=== PATIENT | female | born 1980 | race Caucasian/White ===

== ENCOUNTER 2016-12-20 14:54 | Emergency (ER) | payer SELFPAY ==
[2016-12-20 14:58] VITALS: BMI 37.3
[2016-12-20 15:03] VITALS: BP 105/71; PULSE 63; RESP 20; TEMP 97.3; O2SAT 99
[2016-12-20] MEDS ORDERED: Lidocaine 2% Inj (20ml) INFIL ONE (15:33)
[2016-12-20] MEDS ORDERED: Bacitracin 500 Units/gm Oint Foilpak UD TOP ONE (15:33)
[2016-12-20] MEDS ORDERED: Bacitracin 500 Units/gm Oint Foilpak UD ONE (15:36)
[2016-12-20] MEDS ORDERED: Lidocaine 2% Inj (20ml) ONE (15:37)
--- NOTE | 2016-12-20 16:23 | C.PDOC ---
History Of Present Illness 36 y/o female presents to the ED with complains of laceration. 1 hour PROCESSING MGR, pt was using a knife to cut an avocado and cut left index finger. Pt denies other injury, numbness, weakness or any other complaints. Time Seen by Provider: 12/20/16 15:11 Chief Complaint (Nursing): Abnormal Skin Integrity History Per: Patient History/Exam Limitations: no limitations Onset/Duration Of Symptoms: Mins Current Symptoms Are (Timing): Still Present Location Of Injury: Left: Hand Severity: Mild Recent travel outside of the [place]: No Past Medical History Reviewed: Historical Data, Nursing Documentation, Vital Signs Vital Signs: Last Vital Signs Temp 97.3 F L 12/20/16 14:59 Pulse 63 12/20/16 14:59 Resp 20 12/20/16 16:36 BP 105/71 12/20/16 14:59 Pulse Ox 99 12/20/16 18:33 Family History: States: Unknown Family Hx - Social History Hx Alcohol Use: No Hx Substance Use: No - Immunization History Hx Tetanus Toxoid Vaccination: No Hx Influenza Vaccination: No Hx Pneumococcal Vaccination: No Review Of Systems Except As Marked, All Systems Reviewed And Found Negative. Skin: Positive for: Other (laceration to left index finger) Neurological: Negative for: Weakness, Numbness Physical Exam - Physical Exam Appears: Non-toxic, No Acute Distress Skin: Warm, Dry, No Rash Head: Atraumatic, Normacephalic Eye(s): bilateral: Normal Inspection Oral Mucosa: Moist Neck: Normal ROM Chest: Symmetrical, No Tenderness Cardiovascular: Rhythm Regular Respiratory: Normal Breath Sounds Extremity: Normal ROM, Capillary Refill (<2 seconds), No Deformity, Other (2.5 cm linear laceration to medial aspect left 2nd digit) Pulses: Left Radial: Normal, Right Radial: Normal Neurological/Psych: Oriented x3, Normal Motor, Normal Sensation Gait: Steady ED Course And Treatment O2 Sat by Pulse Oximetry: 99 (on room air) Pulse Ox Interpretation: Normal Procedure: Wound Repair - Time Out Time Out: Side verified, Site verified - Procedure Procedure: Wound Repair: finger laceration - Consent Obtained Consent obtained: Written - Indications Indication(s):: Laceration - Location Finger:: Left, Index - Anesthetic Technique Local/Regional Anesthetic:: Lidocaine 1% - Debris Debris:: None - Complexity Complexity:: Simple (one layer) - Wound repair method Sutures:: # (5), Size (4-0), Type (nylon), Technique (interrupted) - Patient tolerated procedure Patient Tolerated Procedure:: Well Disposition - Disposition Referrals: [facility] [Outside] Disposition: HOME/ ROUTINE Disposition Time: 16:20 Condition: GOOD Additional Instructions: Keep the wound for 2 days. Wash with soap and water twice a day and apply bacitracin. Sutures to be removed with 7 days. 10 days at most. Tdap (Adacel) given for the laceration which will cover for tetanus Instructions: Finger Laceration (ED) - Clinical Impression Clinical Impression: Laceration of finger - PA / INSOLE REINFORCER / Resident Statement MD/DO has reviewed & agrees with the documentation as recorded. - Scribe Statement The provider has reviewed the documentation as recorded by the Scribnabeel Baptiste All medical record entries made by the Scribnabeel were at my direction and personally dictated by me. I have reviewed the chart and agree that the record accurately reflects my personal performance of the history, physical exam, medical decision making, and the department course for this patient. I have also personally directed, reviewed, and agree with the discharge instructions and disposition.
== END 2016-12-20 16:36 | disposition home or self-care (01) ==
LOC: C.ER 14:54
DX: S61.211A Laceration without foreign body of left index finger without damage to nail, initial encounter (principal); W26.0XXA Contact with knife, initial encounter; Y93.G1 Activity, food preparation and clean up; Y92.000 Kitchen of unspecified non-institutional (private) residence as the place of occurrence of the external cause

== ENCOUNTER 2017-01-28 00:37 | Emergency (ER) | payer SELFPAY ==
[2017-01-28 00:44] VITALS: BMI 37.9
[2017-01-28] MEDS ORDERED: Lactated Ringer's 1,000 ML IV ONE (01:08)
[2017-01-28 01:17] LABS: RBC URINE < 1 /hpf (0-3); URINE BILIRUBIN NEGATIVE (NEGATIVE); URINE BLOOD NEGATIVE (NEGATIVE); URINE COLOR Yellow (YELLOW); URINE GLUCOSE (UA) NORMAL (Normal); URINE KETONE TRACE mg/dL (NEGATIVE); URINE LEUKOCYTE ESTERASE NEG Leu/uL (Negative); URINE PROTEIN NEGATIVE (NEGATIVE); URINE UROBILINOGEN NORMAL mg/dL (0.2-1.0); WBC URINE 1 /hpf (0-5)
== END 2017-01-28 03:03 | disposition home or self-care (01) ==
LOC: C.EROB 00:37
DX: O60.03 Preterm labor without delivery, third trimester (principal); Z3A.34 34 weeks gestation of pregnancy
CPT/HCPCS: 81001; 99283; J7120

== ENCOUNTER 2017-03-15 02:04 | Inpatient (IN) | payer MEDICAID, SELFPAY ==
--- NOTE | 2017-03-15 02:14 | OBHP ---
Datetime: 01/28/2017 01:27 IP Adm Impression: , intrauterine ; No Active Labor IP Admit Plan: Admit to unit; Discharge home Admit Comment, IP Provider: chief complaint-vaginal pressure HPI 36 y/o at 34.3 wga with c/o vaginal pressure for last few days.had vomiting three ties to day after dinner and since then felt the pressure is more intense.also noticed increased mucosal disc harge course AMA; care at [facility] in [place] PMH denies PSH denies OBGYN HX ; NVDX5; Denies hx of delivery Social hx denies tobacco,alchol or illcit drug use Exam see exam section UA with trace ketones; neg for nitrites and le A/P 36 y/o at 34.3 wga with c/o vaginal pressure.episode of voimiting after dinner.no active labor -iv fluid bolus -monitor closely 300AM Patient re-examined.cervix unchanged feels better with fluids patient discharegd home Pelvic Type - PN: Adequate Extremities - PN: Normal Abdomen - PN: Normal Back - PN: Normal Lungs - PN: Normal Heart - PN: Normal Neurologic - PN: Normal General - PN: Normal Contraction Comments Provider: ctx every 3-4min Gestation - Est Wks by US: 34.3 IP Hx Assessment: The History has been Reviewed and is Current EGA AdmitDate IP: 34.3 Vital Signs Provider: Reviewed; Within Normal Limits IP Chief Complaint: Uterine contractions FHR Category Provider Fetus A: Category I Dilatation, Provider: 0 Effacement, Provider: thick Station, Provider: closed Genitourinary Exam: Normal DTRs - PN: Normal
[2017-03-15] MEDS ORDERED: Lactated Ringer's 1,000 ML IV SCH ×2 (04:00)
[2017-03-15 04:24] LABS: BASO % 0.2 % (0.0-2.0); EOS # 0.1 K/uL (0.0-0.7); EOS % 0.9 % (0.0-4.0); HEMATOCRIT 37.8 % (34.0-47.0); LYMPH % 28.1 % (20.0-40.0); MEAN CELL VOLUME 90.9 fL (81.0-99.0); MEAN CORPUSCULAR HEMOGLOBIN 31.3 pg (27.0-31.0); MEAN CORPUSCULAR HGB CONC 34.4 g/dL (33.0-37.0); MEAN PLATELET VOLUME 9.4 fL (7.2-11.7); MONO # 0.5 K/uL (0.0-0.8); MONO % 7.8 % (0.0-10.0); RED CELL DISTRIBUTION WIDTH 14.8 % (11.5-14.5)
[2017-03-15 04:27] LABS: URINE BILIRUBIN NEGATIVE (NEGATIVE); URINE BLOOD NEGATIVE (NEGATIVE); URINE COLOR Straw (YELLOW); URINE GLUCOSE (UA) NORMAL (Normal); URINE KETONE NEGATIVE (NEGATIVE); URINE LEUKOCYTE ESTERASE NEG Leu/uL (Negative); URINE PROTEIN NEGATIVE (NEGATIVE); URINE UROBILINOGEN NORMAL mg/dL (0.2-1.0); WBC URINE 1 /hpf (0-5)
[2017-03-15 04:35] LABS: CHLORIDE 104 mmol/L (98-107); POTASSIUM 3.7 mmol/L (3.6-5.2); SODIUM 137 mmol/L (132-148)
[2017-03-15 04:38] LABS: ALB/GLOB RATIO 0.9 (1.0-2.1); ALKALINE PHOSPHATASE 128 U/L (38-126); ALT/SGPT 32 U/L (9-52); AST/SGOT 18 U/L (14-36); BILIRUBIN,TOTAL 0.3 mg/dL (0.2-1.3); BLOOD UREA NITROGEN 4 mg/dL (7-17); CARBON DIOXIDE 20 mmol/L (22-30); GFR AFRICAN-AMERICAN > 60; GLUCOSE,RANDOM 84 mg/dL (65-105); TOTAL PROTEIN 6.6 g/dL (6.3-8.3)
[2017-03-15 04:39] LABS: CALCIUM 8.5 mg/dl (8.6-10.4)
--- NOTE | 2017-03-15 05:56 | US ---
EXAM: US After First Trimester, Transabdominal CLINICAL HISTORY: 36 years old, female; Signs and symptoms; Other: Pain/bleeding; ; Additional info: Post edc , for efw / bpp TECHNIQUE: Real-time transabdominal obstetrical ultrasound of the maternal pelvis and a second or third trimester with image documentation. COMPARISON: No relevant prior studies available. FINDINGS: Fetus: Single live intrauterine gestation. Heart rate: heart rate of 123 beats per minute. Presentation: Cephalic. Placenta: Anterior placenta. No placenta previa or abruption. Amniotic fluid: BABITA = 5.7 cm. Decreased. Anatomy: No gross anomaly is appreciated. BIOMETRICS Gestational age by US: Estimated gestational age of 38 weeks 3 days by measurements. EFW: Estimated weight of 3453 g. BPD: 9.0 cm, correlating with 36 weeks 2 days. HC: 33.9 cm, correlating with 38 weeks 6 days. AC: 33.6 cm, correlating with 37 weeks 4 days. FL: 8.0 cm, correlating with 40 weeks 5 days. MATERNAL: Uterus: Unremarkable. No myometrial mass. Cervix: Closed cervix. Cervical length = 1.4 cm. Free fluid: No free fluid. IMPRESSION: 1. Single live intrauterine gestation. 2. Oligohydramnios. 3. Shortened cervix. 4. Incidental/non-acute findings are described above. EXAM: US , Transvaginal CLINICAL HISTORY: 36 years old, female; Signs and symptoms; Other: Pain/bleeding; ; Additional info: Post edc , for efw / bpp TECHNIQUE: Real-time endovaginal obstetrical ultrasound of the maternal pelvis and second or third trimester with image documentation. Endovaginal imaging was used for better evaluation of the cervix. COMPARISON: No relevant prior studies available. FINDINGS: Fetus: Single live intrauterine gestation. Heart rate: heart rate of 123 beats per minute. Presentation: Cephalic. Placenta: Anterior placenta. No placenta previa or abruption. Amniotic fluid: BABITA = 5.7 cm. Decreased. Anatomy: No gross anomaly is appreciated. BIOMETRICS Gestational age by US: Estimated gestational age of 38 weeks 3 days by measurements. EFW: Estimated weight of 3453 g. BPD: 9.0 cm, correlating with 36 weeks 2 days. HC: 33.9 cm, correlating with 38 weeks 6 days. AC: 33.6 cm, correlating with 37 weeks 4 days. FL: 8.0 cm, correlating with 40 weeks 5 days. MATERNAL: Uterus: Unremarkable. No myometrial mass. Cervix: Closed cervix. Cervical length = 1.4 cm. Free fluid: No free fluid. IMPRESSION: 1. Single live intrauterine gestation. 2. Oligohydramnios. 3. Shortened cervix. 4. Incidental/non-acute findings are described above. EXAM: US Biophysical Profile Without Non-Stress Testing CLINICAL HISTORY: 36 years old, female; Signs and symptoms; Other: Pain/bleeding; ; Additional info: Post edc , for efw / bpp TECHNIQUE: Real-time ultrasound of the maternal pelvis for biophysical profile evaluation with image documentation. COMPARISON: No relevant prior studies available. FINDINGS: breathing movements: Present. Score 2/2. Gross body movements: Present. Score 2/2. tone: Present. Score 2/2. Qualitative amniotic fluid volume: Decreased. Score 0/2. IMPRESSION: Abnormal biophysical profile. 01/29.
--- NOTE | 2017-03-15 08:54 | OBADHP ---
Datetime: 03/15/2017 03:26 Admit Comment, IP Provider: 36 y/o [id number] @ 40.6 wks GA MIRYAM 03/09/17 by limited recrods repo rts feeling ctx pain every 20 minutes, reports increasing intensity and frequency , denies lof. Pt re ports feeling mucuous like blood tinged discharge, denies vb, +FM. Pt reports last pnc visit a few da ys ago and was suppose to be induced but did not want to go t the hospital her doctor recommened and states her doctor was going to call this hospital. Pt states she was supposed to go for an US past he r due date but her doctor never sent her and states last US was done around 34 weeks. Pt denies any problems or concerns with this and states she had normal sugar testing for diabetes and den ies any elevated blood pressure. Pt reports all 5 children were vaginal delivery hoewver 3rd child ballard s shoulder dystocia and is currently 10 years old and is currently undergoing physical therapy. Pt s dejah wants to do cesearen section if any risk of shoulder dystocia. 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 p t counsled cannot predict shoulder dysotcia however if efw is larger than expected risk may be mateo flores. updated s/p efw/ bpp : 3453 grams , treasure 5.7cm. Pt recounsled and advised US efw loses accuracy wit h GA however radiology report is significantly less than 9lb 5 ounce baby with shoulder dystocia. Pt states would like for trial of IOL and if fails to progress or any signs of non reassurance prefers t o have cesearen section due ot son with shoulder dysotocia injury which was traumatatic. -admit -npo, ivf -admission labs -cervidil plan of care discussed extensively with patietn and partner, all questins answered. Pelvic Type - PN: Adequate Extremities - PN: Normal Abdomen - PN: Normal Back - PN: Normal Breast - PN: Not Done Lungs - PN: Normal Heart - PN: Normal Thyroid - PN: Not Done Neurologic - PN: Normal HEENT - PN: Normal General - PN: Normal Weight - Estimated: 3453 Presentation-Admit: Vertex FHR - Baseline A Provider: 135 Membranes, Provider: Intact Contraction Comments Provider: irreglular Gestation - Est Wks by US: 40.6 IP Hx Assessment: The History has been Reviewed and is Current IP Chief Complaint: Uterine contractions NICHD Variability Prov Fetus A: Moderate 6-25bpm NICHD Accel Fetus A IP Provider: [id number] FHR Category Provider Fetus A: Category I NICHD Decel Fetus A IP Provider: None Dilatation, Provider: 0-2 Effacement, Provider: 30 Station, Provider: -3 Genitourinary Exam: Normal DTRs - PN: Normal EGA AdmitDate IP: 41.0 IP Adm Impression: Term, intrauterine Datetime: 01/28/2017 01:27 Vital Signs Provider: Reviewed; Within Normal Limits IP Admit Plan: Admit to unit; Discharge home
[2017-03-15] MEDS ORDERED: Nalbuphine 20 mg/ml Inj (1 ml) ONE (09:22)
[2017-03-15] MEDS ORDERED: Lidocaine 2% MPF (5 ml) Inj ONE (10:52)
[2017-03-15] MEDS ORDERED: Oxycodone/Acetaminophen 5/325 mg Tab PO PRN (11:14)
--- NOTE | 2017-03-15 11:25 | OBDS ---
DELIVERY PERSONNEL Delivery Doctor: Joshua Cameron MD Founder President And Ceo: Jazmine Yanes RN MATERNAL INFORMATION Delivery Anesthesia: None Estimated Blood Loss (ml): 150 Provider Comments: pt was fully dilated and pushing. atrumatic, spontaneous delivery of head in kishan position, no nuchal cord noted, atraumatic spontaneous delivery of anterior followed by posteiror courtney ulder followed by delivery of the body. Both oral and nasal passages of the baby were bulb suctioned. Umbilical cord was clamped and cut. Baby was handed to mother on abdomen with RN assistance. Cord b lood and cord gases collected and sent x 2. Lower uterine segment boggy, small blood clots, bimanual massage perfomred with pitocin. Straight cathether inserted into urethra 300cc clear yel low urine obtained. Bimanal massages continued. Methergine IM x 1 given. Lower uterine segment firm, fundus firm. good hemostasis. intact perineum. no complications live male agpars 9,9 weight of 8lbs 9 ounces no complications ebl 150ml fitter and turner present for delivery LABOR SUMMARY EDC: 03/08/2017 00:00 No. Babies in Womb: 1 LABOR INFORMATION Cervical Ripening Agents: Cervidil Group B Beta Strep: Negative MEMBRANES Membranes Rupture Method: Artificial Rupture of Membranes: 03/15/2017 10:26 Length of Rupture (hrs): 0.48 Amniotic Fluid Color: Clear Amniotic Fluid Amount: Scant STAGES OF LABOR Stage 3 hrs: 0 Stage 3 min: 6 VAGINAL DELIVERY Episiotomy: None Laceration Extension: N/A Laceration Repair Note: intact Initial Vag Sponge Count: 10 Final Vag Sponge Count: 10 Initial Vag Sharps Count: 0 Sponge Count Correct: Yes Sharps Count Correct: N/A Count Comment: count correct BABY A INFORMATION Delivery Date/Time: 03/15/2017 10:55 Method of Delivery: Vaginal Born in Route : No : N/A Forceps: N/A Vacuum Extraction: N/A Shoulder Dystocia : No SHOULDER DYSTOCIA BABY A Infant Delivery Date/Time: 03/15/2017 10:55 PRESENTATION/POSITION BABY A Presentation: Cephalic Cephalic Presentation: Vertex Vertex Position: Left Occipital Anterior Breech Presentation: N/A PLACENTA INFORMATION BABY A Placenta Delivery Time : 03/15/2017 11:01 Placenta Method of Delivery: Spontaneous Placenta Status: Delivered SCORES BABY A Heart Rate 1 min: >100 bpm Resp Effort 1 min: Good Cry Reflex Irritability 1 min: Cough or Sneeze or Pulls Away Muscle Tone 1 min: Active Motion Color 1 min: Body [place], Extremities Blue SCORE 1 MIN: 9 Heart Rate 5 min: >100 bpm Resp Effort 5 min: Good Cry Reflex Irritability 5 min: Cough or Sneeze or Pulls Away Muscle Tone 5 min: Active Motion Color 5 min: Body [place], Extremities Blue SCORE 5 MIN: 9 INFANT INFORMATION BABY A Gestational Age at Delivery: 41.0 Gestational Status: Post-term Infant Outcome : Liveborn Condition : Stable Infant Sex: Male IDENTIFICATION/MEDS BABY A ID Band Number: [id number] ID Band Location: Left Leg; Left Arm Sensor Applied: Yes Sensor Number: [id number] Vitamin K Given : Aquamephyton 1 mg IM Erythromycin Given: Given Both Eyes WEIGHT/LENGTH BABY A Birthweight (gms): 3885 Weight (lb): 8 Weight (oz): 9 Length Inches: 20.75 Infant Length cms: 52.7 CORD INFORMATION BABY A No. Cord Vessels: 3 Nuchal Cord : N/A Cord Blood Taken: Yes Suction: Mouth; Nose ASSESSMENT BABY A Complications: None Infant Complications Other: none Physical Findings at Delivery: Within Normal Limits Respirations: Appears Normal Lieutenant Shift Supervisor/ALS Called : Yes Care By: DR MESSER Transferred To: Remains with Mother
[2017-03-16 07:24] LABS: HEMATOCRIT 35.4 % (34.0-47.0); MEAN CELL VOLUME 92.3 fL (81.0-99.0); MEAN CORPUSCULAR HEMOGLOBIN 30.9 pg (27.0-31.0); MEAN CORPUSCULAR HGB CONC 33.4 g/dL (33.0-37.0); MEAN PLATELET VOLUME 9.3 fL (7.2-11.7); RED CELL DISTRIBUTION WIDTH 14.7 % (11.5-14.5); WHITE BLOOD COUNT 10.5 K/uL (4.8-10.8)
--- NOTE | 2017-03-16 07:37 | OBPPN ---
Datetime: 03/16/2017 07:35 PP Pain Prov: Within normal limits PP Nausea Prov: Denies PP Flatus Prov: Yes PP Abdomen/Uterus Prov: Normal PP Lochia Prov: Normal PP CVA Tenderness Prov: Normal PP Comments Phys Exam Prov: fudus below umblicus ext mild edema,no calf ten PP Impression Prov: Normal progression PP Plan Prov: Discharge PP Progress Note Prov: pt was seen at bed side, pain under control,no n/v, tolerating deit, voiding, min lochia, flatus+ ppd#1 s/p cbc reg deit cont pp care cont pain m,na Vital Signs Provider PP: Reviewed; Within Normal Limits
[2017-03-16] MEDS: Oxycodone/Acetaminophen 5/325 mg Tab PO PRN (21:42)
[2017-03-17] MEDS: Oxycodone/Acetaminophen 5/325 mg Tab PO PRN (05:47)
--- NOTE | 2017-03-17 07:24 | OBPPN ---
Datetime: 03/17/2017 07:22 PP Pain Prov: Within normal limits PP Nausea Prov: Denies PP Flatus Prov: Yes PP Heart Prov: Normal PP Lungs Prov: Normal PP Abdomen/Uterus Prov: Normal PP Lochia Prov: Normal PP CVA Tenderness Prov: Normal PP Extremities Prov: Normal PP C/S Incision Prov: Not Applicable PP Progress Prov: Normal PP Impression Prov: Normal progression PP Plan Prov: Discharge PP Progress Note Prov: S-patient reports that she has cramps.taking motrin.denies nausea, vomiting, headache, chest pain, shortness of breath, numbness or tingling in hands and feet O-VSS Afebrile Fundus firm and below umbilicus extremities no calf tenderness A/P Patient s/p vaginal delivery ppd 2 doing well -discharge today -follow up in clinic in 6 weeks Vital Signs Provider PP: Reviewed; Within Normal Limits
--- NOTE | 2017-03-17 07:26 | OBDCSUM ---
Datetime: 03/17/2017 07:24 Discharged to, Provider: Home Follow up at, Provider: ob clinic Disch Instr Diet: Regular Discharge Diagnosis, Provider: Postterm Delivery Discharge Time: 03/17/2017 07:24 Follow up in weeks, Provider: 6 weeks Disch Activity Restrictions: No exercising; No lifting; No driving; No sexual activity; Nothing in v agina - [place], tampons, douche Discharge Comment, Provider: go to the er if you have ferv, severe pain, heavy bleeding, pain or red ness in calf msucles or any other problems Discharge Diagnosis Prov Other: s/p vaginal delivery
[2017-03-17 08:04] VITALS: BP 100/67; PULSE 72; RESP 18; TEMP 97.2; O2SAT 100
== END 2017-03-17 11:10 | disposition home or self-care (01) | DRG 373 ==
LOC: C.EROB 02:04 → C.4D 03:32 → C.4M 13:45
PROVIDERS: ADMIT Obstetrics & Gynecology; ATTEND Obstetrics & Gynecology
PROC: 10E0XZZ Delivery of Products of Conception, External Approach (ICD-10-PCS; principal; 2017-03-15)
PROC: 3E0P7GC Introduction of Other Therapeutic Substance into Female Reproductive, Via Natural or Artificial Opening (ICD-10-PCS; 2017-03-15)
PROC: 10907ZC Drainage of Amniotic Fluid, Therapeutic from Products of Conception, Via Natural or Artificial Opening (ICD-10-PCS; 2017-03-15)
DX: O48.0 Post-term pregnancy (principal); D64.9 Anemia, unspecified; O99.02 Anemia complicating childbirth; O09.523 Supervision of elderly multigravida, third trimester; Z3A.41 41 weeks gestation of pregnancy; Z37.0 Single live birth